=== PATIENT | female | born 1985 | race Hispanic/Latino ===

== ENCOUNTER 2017-01-18 20:00 | Outpatient (CLI) | payer OTHER | END 2017-01-18 20:01 | disposition home or self-care (01) | LOC: SLEEPLAB 20:00 | PROVIDERS: ATTEND Family Medicine | DX: R40.0 Somnolence (principal); R06.83 Snoring; G47.10 Hypersomnia, unspecified | CPT/HCPCS: 95806 ==

== ENCOUNTER 2017-05-18 17:46 | Emergency (ER) | payer OTHER ==
[2017-05-18] MEDS ORDERED: Famotidine/PF 20 mg/2ml Vial ONE (17:53)
[2017-05-18] MEDS ORDERED: methylPREDNISolone Sod Succ/PF 125 MG/2 ML VIAL ONE (17:53)
[2017-05-18] MEDS ORDERED: EPINEPHrine 1 MG/ML AMP ONE (17:53)
[2017-05-18] MEDS ORDERED: diphenhydrAMINE 50 MG/ML VIAL ONE (17:53)
[2017-05-18] MEDS ORDERED: EPINEPHrine 1 MG/10 ML Abboject SYRINGE ONE (17:55)
== END 2017-05-18 22:39 | disposition home or self-care (01) ==
LOC: ERS 17:46
DX: T78.2XXA Anaphylactic shock, unspecified, initial encounter (principal); L50.9 Urticaria, unspecified; K21.9 Gastro-esophageal reflux disease without esophagitis
CPT/HCPCS: 94640; 96361; 96372; 96374; 96375; J0171; J1200; J2930; J7620; S0028

== ENCOUNTER 2017-07-02 13:41 | Outpatient (CLI) | payer OTHER | END 2017-07-02 13:42 | disposition home or self-care (01) | LOC: BICULT 13:41 | PROVIDERS: ATTEND Family Medicine | DX: R93.8 Abnormal findings on diagnostic imaging of other specified body structures; E04.8 Other specified nontoxic goiter | CPT/HCPCS: 76536 ==

== ENCOUNTER → 2017-07-22 | Day surgery (SDC) | payer OTHER ==
[~2017-07-22] MED LIST: Sodium Bicarbonate 2.5 MEQ/5 ML VIAL ONE
[2017-07-22 09:08] VITALS: TEMP 97.8; BMI 39.4
--- NOTE | 2017-07-22 10:20 | ULT ---
ULTRASOUND DIRECTED FINE NEEDLE ASPIRATION OF RIGHT LOBE THYROID MASS: History: A partially calcified TIRADS 5 lesion was noted on a recent ultrasound dated 07-02-17, and fin e needle aspiration was recommended of this area. FINDINGS: After informed consent was obtained, the patient was prepped and draped in normal sterile fashion wit h local anesthesia being obtained with 1% Zylocaine mixed with sodium bicarb. A 25 gauge needle was u sed for a total of 4 FNA biopsies. The patient tolerated the procedure well. There were no immediate complications of the procedure. The lesion itself is somewhat ill-defined. It measured approximately 8 x 12 mm in size and lies along the posterior aspect of the right lobe of the thyroid. During real-time imaging, at times, it was di fficult to definitely say that this was a part of a the thyroid gland or directly posterior to the gl and or possibly somehow related to the area of the thyroid cartilage. I suspect that it is most likel y an exophytic lesion of the thyroid extending posteriorly. It does have calcifications within it. Al though I do feel it is probably arising from the thyroid gland, if this biopsy comes back nondiagnost ic, which is defintately possible given the presence of calcifications throughout the gland, I believ e that some additional evaluation will be needed in this case. First I would recommend a CT to defini tely establish that this is related to the thyroid gland. The importance of this would be that with t he calcifications and overall appearance it has a higher possibility of a papilary type neoplasm and therefore either closer follow up or consideration for surgical biopsy may be required, even in the f flower of the nondiagnostic FNA. I believe a CT study would be helpful to better determining rather this represents a true thyroid lesion if results come back as nondiagnostic. IMPRESSION: Successful fine needle aspiration. Further evaluation may be required as discussed above, particularl y if the fine needle aspiration returns as a nondiagnostic lesion. POS: ROMY
== END ==
LOC: ULT 07:43
PROVIDERS: ATTEND Family Medicine
PROC: 07D13ZX Extraction of Right Neck Lymphatic, Percutaneous Approach, Diagnostic (ICD-10-PCS; principal; 2017-07-22)
PROC: BG44ZZZ Ultrasonography of Thyroid Gland (ICD-10-PCS; principal; 2017-07-22)
DX: E04.1 Nontoxic single thyroid nodule (principal); Z79.2 Long term (current) use of antibiotics; Z79.899 Other long term (current) drug therapy
CPT/HCPCS: 60100; 76942; 88173; 88305